=== PATIENT | female | born 1985 | race Caucasian/White ===

== ENCOUNTER 2017-09-07 09:16 | Emergency (ER) | END 2017-09-07 13:36 | disposition home or self-care (01) ==

== ENCOUNTER 2018-01-08 09:29 | Emergency (ER) | END 2018-01-08 11:06 | disposition home or self-care (01) ==

== ENCOUNTER 2018-04-22 11:59 | Emergency (ER) | payer OTHER ==
[~2018-04-22] VITALS: Ht 160 cm; Wt 99.8 kg
[~2018-04-22 11:59] MED LIST: AMOX1TAB10 PO; CIPR500T4 PO; HYDR-4011 PO; IBUP-1542 PO; PRED20TA PO; TAMS-14 PO
[2018-04-22 12:23] VITALS: Ht 160 cm; Wt 99.8 kg
[2018-04-22] MEDS ORDERED: ONDA4TAB14 PO (15:31)
[2018-04-22] MEDS ORDERED: HYDR-4011 PO (15:31)
[2018-04-22] MEDS ORDERED: FAMO-96 PO (15:31)
[2018-04-22 15:44] VITALS: BP 123/80; PULSE 96; RESP 20
--- NOTE | 2018-04-22 15:47 | ERD ---
ER Documentation Chief Complaint Chief Complaint right upper back and flank pain since yesterday HPI 32-year-old female presenting with epigastric pain and flank pain. Patient states she had some flank and back pain for the last 2 weeks and developed some epigastric pain today. Denies chest pain or shortness of breath. Denies me dical problems. NKDA. Surgical history denies. Social history denies ROS All systems reviewed and are negative except as per history of present illness. Medications Home Meds Active Scripts Famotidine* (Pepcid*) 20 Mg Tablet, 20 MG PO BID for 4 Days, #30 TAB Prov:DENNIS MONTALVO PA-C 04/22/18 Ondansetron (Ondansetron Odt) 4 Mg Tab.rapdis, 4 MG PO Q6H PRN for NAUSEA AND/OR VOMITING, #10 TAB Prov:DENNIS MONTALVO PA-C 04/22/18 Hydrocodone/Acetaminophen ([place] 5-325 Tablet) 1 Each Tablet, 1 TAB PO Q6H PRN for PAIN, #7 TAB Prov:DENNIS MONTALVO PA-C 04/22/18 Prednisone* (Prednisone*) 20 Mg Tab, 40 MG PO DAILY for 4 Days, TAB Prov:THANH LAGUNA MD 01/08/18 Ibuprofen* (Motrin*) 600 Mg Tab, 600 MG PO Q8, #15 TAB Prov:THANH LAGUNA MD 01/08/18 Amoxicillin/Potassium Clav (Amox-Clav 875-125 mg Tablet) 875-125 mg Tab, 1 TAB PO BID for 7 Days, #14 TAB Prov:THANH LAGUNA MD 01/08/18 Tamsulosin Hcl* (Flomax*) 0.4 Mg Cap.er.24h, 0.4 MG PO BID, #30 CAP Prov:DENNIS MONTALVO PA-C 09/07/17 Ciprofloxacin Hcl* (Ciprofloxacin Hcl*) 500 Mg Tablet, 500 MG PO BID for 7 Days, TAB Prov:DENNIS MONTALVO PA-C 09/07/17 Hydrocodone/Acetaminophen ([place] 5-325 Tablet) 1 Each Tablet, 1 TAB PO Q6H PRN for PAIN, #7 TAB Prov:DENNIS MONTALVO PA-C 09/07/17 Allergies Allergies: Coded Allergies: No Known Allergy (Unverified , 09/07/17) PMhx/Soc Medical and Surgical Hx: pt denies Medical Hx History of Surgery: Yes ( x 2) Anesthesia Reaction: No Hx Neurological Disorder: No Hx Respiratory Disorders: No Hx Cardiac Disorders: No Hx Psychiatric Problems: No Hx Miscellaneous Medical Probl: No Hx Alcohol Use: No Hx Substance Use: No Hx Tobacco Use: No Smoking Status: Never smoker FmHx Family History: No diabetes, No coronary disease, No other Physical Exam Vitals Vital Signs Date Temp Pulse Resp B/P (MAP) Pulse Ox O2 O2 Flow FiO2 Time Delivery Rate 04/22/18 97.8 67 18 146/84 100 12:23 (104) Physical Exam GENERAL: The patient is well-appearing, well-nourished, in no acute distress HEENT: Atraumatic. Conjunctivae are pink. Pupils equal, round, and reactive to light. There is no scleral icterus. Tympanic membranes clear bilaterally. Oropharynx clear. CHEST: Clear to auscultation bilaterally. There are no rales, wheezes or rhonchi. HEART: Regular rate and rhythm. No murmurs, clicks, rubs or gallops. ABDOMEN: Normal active bowel sounds. tender to palpation in the epigastric region. No rebound tenderness. No organomegaly. Result Diagram: 04/22/18 1435 04/22/18 1435 Results 24 hrs Laboratory Tests Test 04/22/18 14:35 04/22/18 14:44 White Blood Count 9.7 10^3/ul Red Blood Count 4.65 10^6/ul Hemoglobin 14.0 g/dl Hematocrit 41.9 % Mean Corpuscular Volume 90.1 fl Mean Corpuscular Hemoglobin 30.1 pg Mean Corpuscular Hemoglobin Concent 33.4 g/dl Red Cell Distribution Width 12.0 % Platelet Count 285 10^3/UL Mean Platelet Volume 11.3 fl Immature Granulocytes % 0.300 % Neutrophils % 58.8 % Lymphocytes % 35.1 % Monocytes % 4.4 % Eosinophils % 1.0 % Basophils % 0.4 % Nucleated Red Blood Cells % 0.0 /100WBC Immature Granulocytes # 0.030 10^3/ul Neutrophils # 5.7 10^3/ul Lymphocytes # 3.4 10^3/ul Monocytes # 0.4 10^3/ul Eosinophils # 0.1 10^3/ul Basophils # 0.0 10^3/ul Nucleated Red Blood Cells # 0.0 10^3/ul Urine Color YELLOW Urine Clarity CLEAR Urine pH 6.0 Urine Specific [place] 1.012 Urine Ketones NEGATIVE mg/dL Urine Nitrite NEGATIVE mg/dL Urine Bilirubin NEGATIVE mg/dL Urine Urobilinogen NEGATIVE mg/dL Urine Leukocyte Esterase NEGATIVE Yoav/ul Urine Hemoglobin NEGATIVE mg/dL Urine Glucose NEGATIVE mg/dL Urine Total Protein NEGATIVE mg/dl Sodium Level 141 mmol/L Potassium Level 4.5 mmol/L Chloride Level 99 mmol/L Carbon Dioxide Level 28 mmol/L Anion Gap 14 Blood Urea Nitrogen 9 mg/dl Creatinine 0.63 mg/dl Est Glomerular Filtrat Rate mL/min > 60 mL/min Glucose Level 108 mg/dl Calcium Level 10.0 mg/dl Total Bilirubin 0.0 mg/dl Direct Bilirubin 0.00 mg/dl Indirect Bilirubin 0.0 mg/dl Aspartate Amino Transf (AST/SGOT) 21 IU/L Alanine Aminotransferase (ALT/SGPT) 23 IU/L Alkaline Phosphatase 75 IU/L Total Protein 8.7 g/dl Albumin 4.6 g/dl Globulin 4.10 g/dl Albumin/Globulin Ratio 1.12 Lipase 66 U/L POC Beta HCG, Qualitative NEGATIVE Procedures/MDM DIAGNOSTIC IMAGING REPORT Patient: AMIRAH THOMASON : 1985 Age: 32 Sex: F MR #: [id number] DOS: 04/22/18 1415 Ordering MD: TUAN MONTALVO PA-C Location: [facility] Room/Bed: PROCEDURE: US Abdomen (right upper quadrant). CLINICAL INDICATION: Right upper quadrant abdomen pain. TECHNIQUE: Multiple real-time longitudinal and transverse images of the right upper quadrant of the abdomen were acquired utilizing a curved array transducer. Images were reviewed on a high-resolution PACS workstation. COMPARISON: CT scan of the abdomen and pelvis dated 09/07/2017. FINDINGS: The liver is normal in size and normal in echogenicity. There is no focal hepatic lesion. Color Doppler and pulsed Doppler sonography demonstrate normal antegrade flow in the portal vein. The gallbladder contains a gallstone. There is no gallbladder wall thickening or fluid around the gallbladder. The bile ducts are normal with the common bile duct measuring 3.7 mm in diameter. The visualized portions of the pancreas are unremarkable with obscuration of the tail of the pancreas. No free fluid is present. The right kidney measures 10.2 x 4.7 x 4.3 cm. There is normal echogenicity of the right kidney. There is no perinephric fluid collection. No hydronephrosis, mass, or calculus is seen. IMPRESSION: 1. Gallstone in the gallbladder. No evidence of cholecystitis. 2. Otherwise unremarkable right upper quadrant abdomen ultrasound. 3. The small nonobstructing right renal calculi seen on prior CT scan are not visualized with ultrasound. MDM: 32-year-old female presenting with pain in the epigastric region. I have low suspicion for choledocholithiasis, cholecystitis, meningitis or pancreatitis. Patient has findings consistent with cholelithiasis and will be discharged with supportive medications. I have low suspicion for cardiac or pulmonary emergency. Patient is discharged stricter precautions and told to follow-up with primary care within 1-2 days for close evaluation. All questions answered at discharge Departure Diagnosis: Primary Impression: Gallstones Condition: Stable Patient Instructions: Gallstones Referrals: [facility] YOU HAVE RECEIVED A MEDICAL SCREENING EXAM AND THE RESULTS INDICATE THAT YOU DO NOT HAVE A CONDITION THAT REQUIRES URGENT TREATMENT IN THE EMERGENCY DEPARTMENT. FURTHER EVALUATION AND TREATMENT OF YOUR CONDITION CAN WAIT UNTIL YOU ARE SEEN IN YOUR DOCTORS OFFICE WITHIN THE NEXT 1-2 DAYS. IT IS YOUR RESPONSIBILITY TO MAKE AN APPOINTMENT FOR FOLOW-UP CARE. IF YOU HAVE A PRIMARY DOCTOR --you should call your primary doctor and schedule an appointment IF YOU DO NOT HAVE A PRIMARY DOCTOR YOU CAN CALL OUR PHYSICIAN REFERRAL HOTLINE AT IF YOU CAN NOT AFFORD TO SEE A PHYSICIAN YOU CAN CHOSE FROM THE FOLLOWING [facility] [address] [facility] [address] [facility] [facility] [address] [facility] [facility] [address] [facility]. [facility] [address] [facility] [facility]. [address] Additional Instructions: FOLLOW UP WITH YOUR PRIMARY CARE PHYSICIAN TOMORROW.Return to this facility if you are not improving as expected. DNENIS MONTALVO PA-C Apr 22, 2018 15:47
== END 2018-04-22 15:45 | disposition home or self-care (01) ==
LOC: FTE 11:59
DX: K80.20 Calculus of gallbladder without cholecystitis without obstruction (principal)
CPT/HCPCS: 36415; 76705; 80053; 81003; 81025; 83690; 85025; Z7502